=== PATIENT | male | born 1985 | race Caucasian/White ===

== ENCOUNTER 2020-11-03 06:05 | Emergency (ER) | payer OTHER ==
[2020-11-03 06:27] LABS: BASOPHIL 0.5 % (0-2); EOSINOPHIL 2.8 % (0-5); HCT 43.1 % (42.0-52.0); HGB 15.8 g/dl (13.2-18.0); LYMPHOCYTE 33.5 % (15-48); MCH 30.3 pg (25.0-31.0); MCHC 36.7 g/dL (32.0-36.0); MCV 82.7 fL (78.0-100.0); MONOCYTE 8.5 % (0-12); MPV 10.8 fL (6.0-9.5); NEUTROPHIL 54.2 % (41-80); NRBC 0; PLT 331 K/uL (150-400); RBC 5.21 M/uL (4.70-6.00); RDW 12.3 % (11.5-14.0); WBC 8.2 K/uL (4.0-10.5)
[2020-11-03 07:26] LABS: ALBUMIN 4.2 g/dL (3.4-5.0); ALKALINE PHOSHATASE 90 U/L (46-116); ALT 53 U/L (16-63); AST 32 U/L (15-37); BILIRUBIN - TOTAL 0.6 mg/dL (0.2-1.0); BUN 13 mg/dL (7-18); BUN/CREAT RATIO (CALC) 15.5 RATIO; C-REACTIVE PROTEIN < 0.20 mg/dL (<=0.90); CHLORIDE 103 mmol/L (98-107); CO2 (BICARBONATE) 23 mmol/L (21-32); CREATININE 0.84 mg/dL (0.67-1.17); GLOBULIN (CALCULATION) 3.2 g/dL; GLUCOSE 155 mg/dL (74-106); POTASSIUM 3.7 mmol/L (3.5-5.1); TOTAL PROTEIN 7.4 g/dL (6.4-8.2)
[2020-11-03] MEDS ORDERED: ANTIVERT25 MG PO (09:16)
[2020-11-03] MEDS ORDERED: ONDANSETRON ODT4 MG PO (09:16)
== END 2020-11-03 09:32 | disposition home or self-care (01) ==
LOC: FER 06:05
PROVIDERS: Emergency Medicine Emergency Medical Services
DX: R42 Dizziness and giddiness (principal); F17.200 Nicotine dependence, unspecified, uncomplicated
CPT/HCPCS: 36415; 70450; 80053; 85025; 86140; 93005; J2405; J3360; J7030